=== PATIENT | female | born 1955 | race Caucasian/White ===

== ENCOUNTER 2023-10-22 08:16 | Emergency (ER) | payer OTHER, SELFPAY ==
[2023-10-22] VITALS (8 sets, daily range): BP systolic 125–148; BP diastolic 65–107; BMI 48.3
--- NOTE | 2023-10-22 08:28 | ED.MUSCINJ ---
HPI-Injury
<Mita Norton BULLDOZER/LOADER/COMPACTOR/SCRAPER - Last Filed: 10/22/23 16:03>
General
Chief Complaint: Musculo-Skeletal Complaint
Source: patient
Exam Limitations: none
Time Seen by Provider: 10/22/23 08:20
Nursing documentation reviewed up to this point in time: agreed with
History of Present Illness-Injury
Initial Injury comments:
68-year-old female with history of gout, HTN, her last gout attack was about a year and a half ago and the opposite foot, presents stating to nights ago her right foot became painful and swollen, she has been icing it and taking Motrin with no
relief in fact it is getting worse. She could not sleep last night due to the pain and swelling in her foot and ankle. patient states the worst pain is in her heel. She denies fever or chills. Denies any injury. No known exposures.
Past History
<Mita Norton, BULLDOZER/LOADER/COMPACTOR/SCRAPER - Last Filed: 10/22/23 16:03>
Past History
ED Past Medical History: HTN and Other (Gout)
ED Past Surgical History: Cholecystectomy and Orthopedic
Social History
Tobacco: Non-smoker
Alcohol: None
Drug: None
Personal:
Living: with family
Review of Systems
<Mita Norton, BULLDOZER/LOADER/COMPACTOR/SCRAPER - Last Filed: 10/22/23 16:03>
Review of Systems
Allergies reviewed?: Yes
All Other Systems: ROS reviewed and negative except as documented in HPI and ROS
Constitutional: Denies fever or chills
Musculoskeletal: Reports other (Pain and swelling right foot and lower ankle)
Phy Exam
<Mita Norton, BULLDOZER/LOADER/COMPACTOR/SCRAPER - Last Filed: 10/22/23 16:03>
Physical Exam
Physical Exam:
GENERAL: No acute distress. A&Ox3.
CONSTITUTIONAL: Afebrile.
RESPIRATORY: Regular respirations, nonlabored, lungs clear.
CARDIOVASCULAR: Regular rate and rhythm, no murmurs, no rubs.
GI: Soft, nontender, normal BS
MUSCULOSKELETAL: Right foot and lower ankle are moderately swollen, warm, redness about the MTP joint of the great toe, Well perfused.
SKIN: Warm, dry, pink
PSYCH: Normal mood and affect. Well kept, interactive and appropriate
NEUROLOGIC: Awake, alert and oriented. No focal neurological deficits
Injury Course
<Mita Norton BULLDOZER/LOADER/COMPACTOR/SCRAPER - Last Filed: 10/22/23 16:03>
Orders/Labs/Results
Orders:
Orders
10/22/23 08:17
CR Foot - Right Min 3 Views Urgent
Comment:
Reason For Exam: can't bare weight, pain
10/22/23 08:26
Complete Blood Count/With Diff Urgent
Comprehensive Metabolic Panel Urgent
Uric Acid Urgent
10/22/23 09:59
Oxycodone/Acetaminophen [Percocet 5/325] 1 tablet PO NOW STA
10/22/23 10:03
HYDROmorphone [Dilaudid] 1 mg IM NOW STA
10/22/23 10:06
Indomethacin [Indocin] 50 mg PO NOW STA
10/22/23 13:00
Valente Wrap Right-Treatment ONCE
10/22/23 16:01
Ortho Boot Right- Treatment ONCE
Short or tall?: Short
Abnormal Lab Results
10/22/23
08:26
RBC 4.13 L 10^6/uL
(4.20-5.40)
MCH 34.6 H pg
(27.0-31.0)
MPV 10.6 H fL
(7.4-10.4)
Absolute Monos (auto) 1.2 H 10^3/uL
(0.1-0.6)
Lymphocytes % 15.6 L %
(20.5-51.1)
Monocytes % 15.0 H %
(1.7-9.3)
Glucose 108 H mg/dl
(70-99)
Uric Acid 6.3 H mg/dl
(2.5-6.2)
Total Bilirubin 1.9 H mg/dl
(0.2-1.3)
10/22/23 08:26
10/22/23 08:26
<Mercedes Salazar MD - Last Filed: 10/22/23 13:07>
Orders/Labs/Results
Orders:
Orders
10/22/23 08:17
CR Foot - Right Min 3 Views Urgent
Comment:
Reason For Exam: can't bare weight, pain
10/22/23 08:26
Complete Blood Count/With Diff Urgent
Comprehensive Metabolic Panel Urgent
Uric Acid Urgent
10/22/23 09:59
Oxycodone/Acetaminophen [Percocet 5/325] 1 tablet PO NOW STA
10/22/23 10:03
HYDROmorphone [Dilaudid] 1 mg IM NOW STA
10/22/23 10:06
Indomethacin [Indocin] 50 mg PO NOW STA
10/22/23 13:00
Valente Wrap Right-Treatment ONCE
10/22/23 16:01
Ortho Boot Right- Treatment ONCE
Short or tall?: Short
Abnormal Lab Results
10/22/23
08:26
RBC 4.13 L 10^6/uL
(4.20-5.40)
MCH 34.6 H pg
(27.0-31.0)
MPV 10.6 H fL
(7.4-10.4)
Absolute Monos (auto) 1.2 H 10^3/uL
(0.1-0.6)
Lymphocytes % 15.6 L %
(20.5-51.1)
Monocytes % 15.0 H %
(1.7-9.3)
Glucose 108 H mg/dl
(70-99)
Uric Acid 6.3 H mg/dl
(2.5-6.2)
Total Bilirubin 1.9 H mg/dl
(0.2-1.3)
10/22/23 08:26
10/22/23 08:26
<Mita Norton, BULLDOZER/LOADER/COMPACTOR/SCRAPER - Last Filed: 10/22/23 16:03>
MDM/Problems Addressed
Differential Diagnosis Includes:
Gout attack, cellulitis
MDM/Problems Addressed:
68-year-old female with history of gout, HTN, her last gout attack was about a year and a half ago and the opposite foot, patient states the worst pain is in her heel. Presents stating to nights ago her right foot became painful and swollen, she has
been icing it and taking Motrin with no relief in fact it is getting worse. She could not sleep last night due to the pain and swelling in her foot and ankle. She denies fever or chills. Denies any injury. No known exposures.
Afebrile, NAD
CBC with no clinically significant abnormality
CMP with no clinically significant abnormality
X-ray right foot, radiology report read, no acute osseous abnormality identified
10:00 AM: Patient is in tears due to pain.
Pain medication ordered
12:45 PM
Patient states much relief after pain medication.
Foot is significantly swollen, there is a very good bounding pedal pulse, foot warm, brisk capillary refill,
pt wants to go home. Will send rx for pain meds to her pharmacy, orthopedic referral, she is staying with her mother in law who has rolator and walker she can use.
Dr. Salazar consulted and into evaluate patient, agrees with assessment and plan
Valente wrap applied with ortho boot. Pt ambulated with walker, with limp to bathroom
Referred to orthopedics
<Mita Norton BULLDOZER/LOADER/COMPACTOR/SCRAPER - Last Filed: 10/22/23 16:03>
*Critical Care Note
Total Time (30-74mins, 75-104mins- exclusive of procedures): Not Applicable
ED Attending Note
<Mita Norton BULLDOZER/LOADER/COMPACTOR/SCRAPER - Last Filed: 10/22/23 16:03>
-
Portions of this chart may have been created with voice recognition software.� Occasional wrong word or��sound alike� substitutions may have occurred due to the inherent limitations of voice recognition software.
<Mercedes Salazar MD - Last Filed: 10/22/23 13:07>
ED Attending Note
Patient seen and examined by attending physician: Yes
I performed the substantive portion of visit, reviewed & personally made and approve the management plan that is documented in note by myself or OTNY.: Yes
ED Attending Note:
Pt wth R foot/toe/ankle pain for last two nights...as per pt, worse at R great toe (differs from BULLDOZER/LOADER/COMPACTOR/SCRAPER history), and feels 'just like' prior episodes of gout. No break in skin/fluctuance/crepitus/drainage/fever/chills/immunosuppression etc to suggest
risk septic arthritis. Pt has preserved ROM of foot/ankle, 2+ dp/pt pulses, sens intact. There is focal redness and swell at R great toe. Clinically suspect gout, doubt septic arthritis/cellulitis/nec fasc, etc. Pt feels much better s/p meds
here and would like to go home. Will facilitate d/c with walker and/or boot to minimize weight bearing as she improves. She is very aware re:import of f/u and resaons to rted includng worsening/persistent sxs etc.
Discharge Plan
Departure
Patient Disposition: Home (Routine Discharge)
Date of Disposition: 10/22/23
Time of Disposition: 13:01
Patient with high blood pressure during this ER visit?: No
Condition: Fair
Discharge Problem:
Acute gout of right foot
Instructions: Low Purine Diet, Gout ED, Narcotic Pain Medication
Prescriptions:
New
hydrocodone-acetaminophen 5-325 mg tablet
1 tab PO TID PRN (Reason: Pain) Qty: 10 0RF
prednisone 20 mg tablet
40 mg PO DAILY Qty: 8 0RF
No Action
acetaminophen-codeine 300-15 mg Tablet
1 tab PO Q4HPRN PRN (Reason: pain) Qty: 7 0RF
lisinopril 20 mg Tablet
20 mg PO DAILY
Referrals:
Lalit Manning MD [Active] - As needed
Elma Wallis MD [Family Provider] - Follow up in 5-7 days
Activity Restrictions/Additional Instructions:
As we discussed, use your walker and rolator until you can bear weight comfortably
Wear the valente wrap if it helps as needed for swelling, support
You were given a dose of Decadron, a steroid here today so start the prednisone tomorrow
You may use ibuprofen 600 mg, with food, every 6 hours as needed for mild to moderate pain and use the hydrocodone if needed for worse pain.
See your doctor or the orthopedic doctor in 5 to 7 days if not much improved by then.
Interventions
Interventions:
*Risk Screen - Suicide Last Done: 10/22/23 08:29
*General Assessment Last Done: 10/22/23 08:29
*Neglect/Abuse Screening Last Done: 10/22/23 08:29
ED- Fall Risk Assessment Last Done: 10/22/23 08:29
*ED COVID-19 Vaccine History Last Done: 10/22/23 08:29
*Nursing Disposition Last Done: 10/22/23 14:20
ED-Musculoskeletal Assessment Last Done: 10/22/23 08:29
Discharge Date and Time
Discharge Date/Time: 10/22/23 15:00
Print Language: PARAGUAYAN
[2023-10-22 08:43] LABS: % Basophils 0.1 % (0-2); % Eosinophils 1.4 % (0-6); % Immature Granulocytes 0.4 % (0-0.5); % Lymphocytes 15.6 % (20.5-51.1); % Neutrophils 67.5 % (42.2-75.2); Absolute Eosinophils 0.1 10^3/uL (0-0.7); Absolute Lymphocytes 1.2 10^3/uL (1.2-3.4); Absolute Monocytes 1.2 10^3/uL (0.1-0.6); Absolute Neutrophils 5.3 10^3/uL (1.4-6.5); Hematocrit 40.2 % (37.0-47.0); Hemoglobin 14.3 g/dL (12.0-16.0); Mean Corp Hgb Conc. 35.6 g/dL (33.0-37.0); Mean Corpuscular Hgb 34.6 pg (27.0-31.0); Mean Corpuscular Volume 97.3 fL (81.0-99.0); Mean Platelet Volume 10.6 fL (7.4-10.4); Nucleated Red Blood Cells % 0 %; Platelet Count 173 10^3/uL (130-400); Red Blood Cell Count 4.13 10^6/uL (4.20-5.40); Red Cell Dist. Width 12.5 % (11.5-14.5); White Blood Cell Count 7.9 10^3/uL (4.8-10.8)
[2023-10-22 09:08] LABS: ALT (SGPT) 29 U/L (0-35); AST (SGOT) 32 U/L (14-36); Alkaline Phosphatase 70 U/L (38-126); Blood Urea Nitrogen 9 mg/dl (7-17); Calcium 9.2 mg/dl (8.4-10.2); Carbon Dioxide 27 mmol/L (22-30); Chloride 103 mmol/L (98-107); Estimated Creatinine Clearance 113 ml/min; Glucose 108 mg/dl (70-99); Potassium 3.7 mmol/L (3.5-5.1); Sodium 136 mmol/L (135-145); Total Bilirubin 1.9 mg/dl (0.2-1.3); Total Protein 7.1 g/dl (6.3-8.2); eGFR > 60.00
[2023-10-22 09:58] LABS: Uric Acid 6.3 mg/dl (2.5-6.2)
[2023-10-22] MEDS: DILAUDID 1 MG IM (10:11)
[2023-10-22] MEDS: INDOCIN 50 MG PO (11:41)
== END 2023-10-22 15:00 | disposition home or self-care (01) ==
LOC: EMR 08:16
PROVIDERS: EMERGENCY PHYSICIAN Emergency Medicine; FAMILY PHYSICIAN Family Medicine
DX: M10.9 Gout, unspecified (principal)
CPT/HCPCS: 99284; 96372; 73630; 80053; 84550; 85025

== ENCOUNTER 2024-07-21 23:07 | Emergency (ER) | payer OTHER, SELFPAY ==
[2024-07-21 23:07] VITALS: BMI 56.4
[2024-07-21 23:17] VITALS: BP 192/115
[2024-07-22 00:04] VITALS: BP 161/86
--- NOTE | 2024-07-22 00:07 | ED.GENMED ---
History of Present Illness
General
Chief Complaint: Breathing Problem
Source: patient
Exam Limitations: none
Time Seen by Provider: 07/21/24 23:56
Nursing documentation reviewed up to this point in time: agreed with
History of Present Illness
History of Present Illness:
This is a 69-year-old woman who has history of hypertension, intermittent gout, history of asthma that is generally well-controlled with rare exacerbations generally associated with URI symptoms. She complains of 3-day history of URI symptoms, mild
nasal congestion accompanied with cough that has progressed over the past 3 days with onset of subjective fever this afternoon/evening. She has been using her albuterol inhaler without relief.
Was evaluated by PCP yesterday, prescribed Singulair for which she took a dose yesterday and again today but notes significant nausea and abdominal cramping shortly after taking each dose of Singulair.
She denies chest pain, cough has been nonproductive. No dizziness nor lightheadedness, no sore throat, no abdominal or back pain. No leg pain or swelling.
No close contacts with similar symptoms.
No recent travel.
Past History
Past History
ED Past Medical History: Asthma, HTN and Other (Gout)
ED Past Surgical History: Cholecystectomy and Orthopedic
Social History
Tobacco: Non-smoker
Alcohol: None
Drug: None
Personal:
Living: with family
Employment: Retired
Family History
Family History: Other (Noncontributory)
Phy Exam
Physical Exam
Physical Exam:
GENERAL: 69-year-old overweight woman appears her stated age, bright and alert, pleasant, appears in no acute distress. Intermittent bronchiolitic type nonproductive cough is noted. Able to speak in full sentences. Low-grade fever noted 100.5 �F.
Significant hypertension noted initially, has improved to currently 161/86. Pulse ox 97% on room air.
EYE: pupils equal and reactive. anicteric
NECK: Supple, nontender, no meningismus, no significant adenopathy. No JVD.
ENT: posterior pharynx is without injection, mild clear postnasal drip is noted. Oral mucosa is moist. TM clear b/l, nares have mildly boggy pale turbinates with scant clear rhinorrhea.
CARDIAC: Regular rate and rhythm. no murmur.
LUNGS: No respiratory distress, harsh expiratory wheezing noted bilaterally.
ABDOMEN: Rotund, soft, nondistended, without focal tenderness, no r/g, normoactive BS.
NEUROLOGICAL: Alert and oriented x3, no focal neuro deficits.
SKIN: Warm and dry, normal color, skin intact. No rash.
MUSCULOSKELETAL: No C/C/E. peripheral pulses are full and equal b/l. No palpable tenderness.
PSYCH: Normal and appropriate interaction.
Scores
Heart Failure Risk
Heart Failure Risk Score: Not Applicable
Course
Orders/Labs/Results
Orders:
Orders
07/22/24 00:03
0.9% Sodium Chloride 1000 ml [Nss] 1,000 ml IV BOLUS
Acetaminophen [Tylenol] 1,000 mg PO NOW STA
Albuterol Sulfate [Ventolin Nebules] 7.5 mg INH R NOW STA
Dexamethasone Sod Phosphate [Decadron] 10 mg IV NOW STA
Ipratropium Nebs [Atrovent Nebules] 0.5 mg INH R NOW STA
07/22/24 00:38
COVID-19 Antigen Urgent
Source: Nasal Swab
Influenza A+B Rapid Molecular Urgent
ABBY Source: Nasal Swab
Specimen Description:
07/22/24 01:07
Respiratory Syncytial Virus Urgent
ABBY Source: Nasal Swab
Specimen Description:
Date Specimen was Collected: 07/22/24
Time Specimen was Collected: 01:04
07/22/24 01:21
CR Chest - 2 Views Urgent
Comment:
Reason For Exam: cough, SOB, fever
07/22/24 02:47
Azithromycin [Zithromax] 500 mg PO NOW STA
Vital Signs
Temp: 100.5 F
Initial and Last Documented VS:
Initial Vital Signs
Temp Pulse Resp BP Pulse Ox
99.8 F 104 28 192/115 96
07/21/24 23:17 07/21/24 23:17 07/21/24 23:17 07/21/24 23:17 07/21/24 23:17
Last Documented Vital Signs
Temp Pulse Resp BP Pulse Ox
98.1 F 118 23 148/90 95
07/22/24 02:14 07/22/24 02:45 07/22/24 02:45 07/22/24 01:00 07/22/24 02:45
MDM/Problems Addressed
Differential Diagnosis Includes:
Concern for acute exacerbation of asthma, pneumonia, CHF is much less likely.
No history of thromboembolism nor risk factors for such.
She is noted to have low-grade fever. Will check COVID, influenza, RSV.
Will give hour-long albuterol/ipratropium nebulizer treatment, initiate IV fluids and give an IV dose of Decadron.
Will consider chest x-ray.
Patient has history of hypertension. Noted to be significantly hypertensive in triage, similar sporadic elevated blood pressure readings noted on previous visits. BP has improved upon recheck 161/86.
Significant generalized wheezing noted but no respiratory distress and pulse ox 97% which is reassuring.
Will give a dose of Tylenol for fever.
At this point no indication for laboratory studies nor imaging but will reassess after nebulizer treatment, Decadron and Tylenol.
Chronic conditions affecting care: HTN and Asthma
*Radiology
Radiology exam reviewed: preliminary read by ED provider (Chest x-ray shows mildly elevated left hemidiaphragm with blunting of the left costophrenic angle which is similar and unchanged from previous film 2018. There is however very subtle
tree-in-bud consolidation right lower lobe, right upper lobe which appears new compared to previous.)
*Pulse Oximetry
Patient hypoxic: no
*Critical Care Note
Total Time (30-74mins, 75-104mins- exclusive of procedures): Not Applicable
Update Note
Update Note:
02:50
Patient feeling markedly improved after nebulizer treatment. Resting comfortably. Respirations are easy and nonlabored.
Lungs with marked improvement in air movement, scant scattered end expiratory wheezing.
Pulse ox 97% on room air.
BP has further improved to 148 systolic
COVID, influenza and RSV testing are all negative.
Chest x-ray shows chronically blunted left costophrenic angle. There is concern for very mild tree-in-bud consolidation right lower lobe, right upper lobe and with a low-grade fever, concern for potential focal pneumonia thus will treat with a
course of Zithromax.
Will add a tapering course of prednisone as well as initiation of LABA/ICS.
Recommend continuing albuterol inhaler for as needed cough, wheezing.
Discussed importance of staying well-hydrated on a daily basis.
Tylenol as needed for fever.
Prompt follow-up with PCP for recheck.
Will refer to pulmonology as well.
Return precautions discussed.
ED Attending Note
-
Portions of this chart may have been created with voice recognition software.� Occasional wrong word or��sound alike� substitutions may have occurred due to the inherent limitations of voice recognition software.
Discharge Plan
Departure
Patient Disposition: Home (Routine Discharge)
Date of Disposition: 07/22/24
Time of Disposition: 02:53
Patient with high blood pressure during this ER visit?: No
Condition: Good
Discharge Problem:
Acute asthma exacerbation, Acute bronchitis with asthma
Instructions: Asthma, Adult (DC)
Prescriptions:
New
prednisone 10 mg Tablet
See Rx Instructions .ROUTE .COMPLEX Qty: 30 0RF
Rx Instructions:
Take By Mouth:
40 mg daily x3 days, 30 mg daily x3 days,
20 mg daily x3 days, 10 mg daily x3 days.
azithromycin [Zithromax Z-Junito] 250 mg tablet
250 mg PO DAILY 5 Days Qty: 6 0RF
Rx Instructions:
2 TABLETS DAY 1, THEN ONE TABLET DAY 2-5.
fluticasone propion-salmeterol [Wixela Inhub] 250-50 mcg/dose blister with device
1 inh inhalation BID Qty: 60 2RF
No Action
acetaminophen-codeine 300-15 mg Tablet
1 tab PO Q4HPRN PRN (Reason: pain) Qty: 7 0RF
lisinopril 20 mg Tablet
20 mg PO DAILY
hydrocodone-acetaminophen 5-325 mg tablet
1 tab PO TID PRN (Reason: Pain) Qty: 10 0RF
prednisone 20 mg tablet
40 mg PO DAILY Qty: 8 0RF
Referrals:
Elma Wallis MD [Family Provider] - Call in 1-3 days for appt
Johnny Sutton MD [Active] - Call in 1-3 days for appt
Interventions
Interventions:
*Risk Screen - Suicide Last Done: 07/21/24 23:17
*General Assessment Last Done: 07/21/24 23:17
*Neglect/Abuse Screening Last Done: 07/21/24 23:17
*ED COVID-19 Vaccine History Last Done: 07/21/24 23:17
ED- Cardiac Assessment Last Done: 07/21/24 23:39
ED- Pulmonary Assessment Last Done: 07/21/24 23:39
Discharge Date and Time
Print Language: SINHALA
[2024-07-22] MEDS: TYLENOL 1000 MG PO (00:23)
[2024-07-22] MEDS: VENTOLIN NEBULES 7.5 MG INH (00:24)
[2024-07-22] MEDS: ATROVENT NEBULES 0.5 MG INH (00:25)
[2024-07-22] MEDS: NSS 1000 IV (00:34)
[2024-07-22] MEDS: DECADRON 10 MG IV (00:34)
[2024-07-22 01:00] VITALS: BP 148/90
[2024-07-22 01:13] LABS: COVID-19 Antigen Negative (Negative)
[2024-07-22 02:52] VITALS: BP 155/78
[2024-07-22] MEDS: ZITHROMAX 500 MG PO (02:54)
== END 2024-07-22 03:13 | disposition home or self-care (01) ==
LOC: EMR 23:07
PROVIDERS: EMERGENCY PHYSICIAN Emergency Medicine; FAMILY PHYSICIAN Family Medicine
DX: J45.901 Unspecified asthma with (acute) exacerbation (principal); J20.9 Acute bronchitis, unspecified; I10 Essential (primary) hypertension; Z90.49 Acquired absence of other specified parts of digestive tract; Z11.52 Encounter for screening for COVID-19
CPT/HCPCS: 94640; 96374; 96361; 99284; 71046; 87502; 87807; 87811

== ENCOUNTER 2025-02-15 10:18 | Emergency (ER) | payer OTHER, SELFPAY ==
[2025-02-15 10:21] VITALS: BP 128/68
--- NOTE | 2025-02-15 11:39 | ED.MUSCINJ ---
HPI-Injury
General
Chief Complaint: Musculo-Skeletal Complaint
Source: patient
Exam Limitations: none
Time Seen by Provider: 02/15/25 11:13
History of Present Illness-Injury
Initial Injury comments:
69-year-old female with history of gout presents with sudden onset of sharp pain to the left lateral foot starting yesterday. Symptoms remind her of her prior gout attacks. She denies injury or fever. No chest pain or shortness of breath. No
other
Past History
Past History
ED Past Medical History: Asthma, HTN and Other (Gout)
ED Past Surgical History: Cholecystectomy and Orthopedic
Social History
Tobacco: Non-smoker
Alcohol: None
Drug: None
Personal:
Living: with family
Employment: Retired
Family History
Family History: Other (Noncontributory)
Phy Exam
Physical Exam
Physical Exam:
General: Well-appearing female no acute distress
Musculoskeletal exam: Left link wire fabric machine tender over the lateral aspect of the foot no deformity. No overlying skin changes. The ankle is nontender.
Vascular 2+ DP pulse left foot
MDM/Problems Addressed
Differential Diagnosis Includes:
Left foot pain consistent with prior history of gout. No known injury. Do not suspect fracture. No evidence of cellulitis. Suspect acute gout. Will prescribe prednisone. Stable for discharge with follow-up
*Pulse Oximetry
SaO2: 99
Oxygen Mode of Delivery: Room air
Patient hypoxic: no
*Critical Care Note
Total Time (30-74mins, 75-104mins- exclusive of procedures): Not Applicable
ED Attending Note
-
Portions of this chart may have been created with voice recognition software.� Occasional wrong word or��sound alike� substitutions may have occurred due to the inherent limitations of voice recognition software.
Discharge Plan
Departure
Patient Disposition: Home (Routine Discharge)
Date of Disposition: 02/15/25
Time of Disposition: 11:41
Patient with high blood pressure during this ER visit?: No
Discharge Problem:
Acute gout
Instructions: Gout
Prescriptions:
New
prednisone 10 mg Tablet
See Rx Instructions .ROUTE .COMPLEX Qty: 30 0RF
Rx Instructions:
Take By Mouth:
40 mg daily x3 days, 30 mg daily x3 days,
20 mg daily x3 days, 10 mg daily x3 days.
No Action
acetaminophen-codeine 300-15 mg Tablet
1 tab PO Q4HPRN PRN (Reason: pain) Qty: 7 0RF
lisinopril 20 mg Tablet
20 mg PO DAILY
hydrocodone-acetaminophen 5-325 mg tablet
1 tab PO TID PRN (Reason: Pain) Qty: 10 0RF
prednisone 20 mg tablet
40 mg PO DAILY Qty: 8 0RF
prednisone 10 mg Tablet
See Rx Instructions .ROUTE .COMPLEX Qty: 30 0RF
Rx Instructions:
Take By Mouth:
40 mg daily x3 days, 30 mg daily x3 days,
20 mg daily x3 days, 10 mg daily x3 days.
azithromycin [Zithromax Z-Junito] 250 mg tablet
250 mg PO DAILY 5 Days Qty: 6 0RF
Rx Instructions:
2 TABLETS DAY 1, THEN ONE TABLET DAY 2-5.
fluticasone propion-salmeterol [Wixela Inhub] 250-50 mcg/dose blister with device
1 inh inhalation BID Qty: 60 2RF
Referrals:
Elma Wallis MD [Family Provider, Family Practice]
Activity Restrictions/Additional Instructions:
Use prednisone as directed. Elevate and rest. Return if needed otherwise
Interventions
Interventions:
*Risk Screen - Suicide Last Done: 02/15/25 10:21
*General Assessment Last Done: 02/15/25 10:21
*Neglect/Abuse Screening Last Done: 02/15/25 10:21
*ED COVID-19 Vaccine History Last Done: 02/15/25 10:21
*ED Influenza Vaccine History Last Done: 02/15/25 10:21
Discharge Date and Time
Print Language: MAORI
== END 2025-02-15 11:47 | disposition home or self-care (01) ==
LOC: EMR 10:18
PROVIDERS: EMERGENCY PHYSICIAN Emergency Medicine; FAMILY PHYSICIAN Family Medicine
DX: M10.9 Gout, unspecified (principal); I10 Essential (primary) hypertension; J45.909 Unspecified asthma, uncomplicated
CPT/HCPCS: 99282